=== PATIENT | female | born 1960 | race African-American/Black ===

== ENCOUNTER 2017-05-21 13:16 | Emergency (ER) | payer OTHER ==
[~2017-05-21] VITALS: Ht 167.6 cm; Wt 68.0 kg
[~2017-05-21 13:16] MED LIST: CLONIDINE; HYDR25TA4; LISINOPRIL PO
--- NOTE | 2017-05-21 13:16 | NUR ---
Patient is AOx4 but unable to recall the exact names & dosages of her home medicines at this time.
[2017-05-21] MEDS ORDERED: TETRACAINE HCL 0.5% OPHT DROP 2 ML BOTTLE OP ONE (13:30)
[2017-05-21] MEDS ORDERED: FLUORESCEIN SODIUM 1 MG STRIP OP ONE (13:30)
[2017-05-21] MEDS ORDERED: LATANOPROST 0.005% EYE DROPS (13:34)
[2017-05-21] MEDS ORDERED: LISINOPRIL PO (13:36)
[2017-05-21] MEDS ORDERED: AMLODIPINE (13:36)
[2017-05-21] MEDS ORDERED: HYDR25TA4 PO (13:36)
[2017-05-21] MEDS ORDERED: GENTAMICIN SULFATE OPHT OINT 3.5 GM TUBE LEFTEYE ONE (13:45)
[2017-05-21] MEDS ORDERED: FLUORESCEIN SODIUM 1 MG STRIP ONE (13:48)
[2017-05-21] MEDS ORDERED: TETRACAINE HCL 0.5% OPHT DROP 2 ML BOTTLE ONE (13:48)
--- NOTE | 2017-05-21 13:53 | NUR ---
Patient says, "I feel so much better, about 50 percent better." Patient discharged to home in stable conditon. Written and verbal after care instructions given to patient. Patient verbalizes understanding of instructions. Left eye patch is on.
[2017-05-21] MEDS ORDERED: GENTAMICIN SULFATE OPHT OINT 3.5 GM TUBE ONE (14:00)
== END 2017-05-21 13:54 | disposition home or self-care (01) ==
LOC: ER 13:16
DX: H18.822 Corneal disorder due to contact lens, left eye (principal); I10 Essential (primary) hypertension; Z88.0 Allergy status to penicillin
CPT/HCPCS: 99283; A4663

== ENCOUNTER 2017-09-28 17:12 | Emergency (ER) | payer OTHER ==
[~2017-09-28] VITALS: Ht 167.6 cm; Wt 65.8 kg
[~2017-09-28 17:12] MED LIST changes: +AMLODIPINE; -HYDR25TA4; +HYDR25TA4 PO; +LATANOPROST 0.005% EYE DROPS
--- NOTE | 2017-09-28 18:49 | NUR ---
Patient discharged to home in stable conditon. Written and verbal after care instructions given. Patient verbalizes understanding of instructions.
== END 2017-09-28 18:52 | disposition home or self-care (01) ==
LOC: ER 17:13
DX: S61.211A Laceration without foreign body of left index finger without damage to nail, initial encounter (principal); I10 Essential (primary) hypertension; Z88.0 Allergy status to penicillin; Z79.899 Other long term (current) drug therapy; W26.8XXA Contact with other sharp object(s), not elsewhere classified, initial encounter; Y93.89 Activity, other specified; Y92.89 Other specified places as the place of occurrence of the external cause; Y99.8 Other external cause status
CPT/HCPCS: 12001; 99283; A4217; A4663

== ENCOUNTER 2019-02-28 11:43 | Emergency (ER) | payer OTHER ==
[~2019-02-28] VITALS: Ht 167.6 cm; Wt 68.0 kg
[2019-02-28] MEDS ORDERED: ONDANSETRON ODT 4 MG TAB.RAPDIS SL ONE (12:00)
[2019-02-28] MEDS ORDERED: ONDANSETRON ODT 4 MG TAB.RAPDIS ONE (12:03)
--- NOTE | 2019-02-28 12:08 | NUR ---
Patient discharged to home in stable conditon. Written and verbal after care instructions given to patient. Patient verbalizes understanding of instructions.
== END 2019-02-28 12:09 | disposition home or self-care (01) ==
LOC: ER 11:43
DX: R21 Rash and other nonspecific skin eruption (principal); R20.2 Paresthesia of skin; R11.0 Nausea; I10 Essential (primary) hypertension; Z88.0 Allergy status to penicillin; Z79.899 Other long term (current) drug therapy
CPT/HCPCS: A4663; Q0162

== ENCOUNTER 2019-07-19 08:37 | Emergency (ER) | payer OTHER ==
[~2019-07-19] VITALS: Ht 170.2 cm; Wt 72.6 kg
--- NOTE | 2019-07-19 09:13 | NUR ---
@[email or web address], MSE in progress
--- NOTE | 2019-07-19 09:31 | NUR ---
Patient discharged to home in stable condition. Written and verbal after care instructions given to patient. Patient verbalizes understanding and compliance of instructions.
== END 2019-07-19 09:32 | disposition home or self-care (01) ==
LOC: ER 08:37
DX: L29.9 Pruritus, unspecified (principal); I10 Essential (primary) hypertension; Z88.0 Allergy status to penicillin; Z79.899 Other long term (current) drug therapy
CPT/HCPCS: A4663

== ENCOUNTER 2019-07-29 22:06 | Emergency (ER) | payer OTHER ==
[~2019-07-29] VITALS: Ht 165.1 cm; Wt 70.3 kg
--- NOTE | 2019-07-29 22:17 | NUR ---
Dr. Hogan at bedside for MSE.
--- NOTE | 2019-07-29 22:29 | NUR ---
Patient discharged to home in stable condition. Written and verbal after care instructions given. Patient verbalizes understanding of instructions. Pt ambulated out of ER with steady gait, no acute signs of distress, VSS, all belongings taken.
[2019-07-29 22:30] VITALS: BP 139/99
== END 2019-07-29 22:30 | disposition home or self-care (01) ==
LOC: ER 22:08
DX: Z11.9 Encounter for screening for infectious and parasitic diseases, unspecified (principal); R20.2 Paresthesia of skin; I10 Essential (primary) hypertension
CPT/HCPCS: A4663

== ENCOUNTER 2019-07-31 11:27 | Emergency (ER) | payer OTHER ==
[~2019-07-31] VITALS: Ht 170.2 cm; Wt 68.0 kg
--- NOTE | 2019-07-31 12:13 | NUR ---
PATIENT IS AWAKE AND ALERT IN NO DISTRESS.
[2019-07-31 12:52] LABS: BASOPHILS % (AUTO) 0.7 % (0.0-2.0); EOSINOPHILS % (AUTO) 0.5 % (0.0-7.0); HEMATOCRIT 46.7 % (31.2-41.9); HEMOGLOBIN 15.2 g/dL (10.9-14.3); LYMPHOCYTES % (AUTO) 40.7 % (20.5-51.5); MEAN CORPUSCULAR HEMOGLOBIN 27.3 uug (24.7-32.8); MEAN CORPUSCULAR HGB CONC 33 g/dL (32.3-35.6); MONOCYTES # (AUTO) 0.5 K/uL (2.0-10.0); MONOCYTES % (AUTO) 9.1 % (0.0-11.0); NEUTROPHILS # (AUTO) 2.5 K/uL (1.8-8.9); PLATELET COUNT (AUTO) 308 K/uL (179-408); RED BLOOD CELL COUNT(AUTO) 5.55 MIL/uL (3.63-4.92)
[2019-07-31 13:00] LABS: CREATININE 1.4 mg/dL (0.6-1.3); POTASSIUM 3.3 mmol/L (3.5-5.1)
[2019-07-31 13:12] LABS: BILIRUBIN,DIRECT 0.1 mg/dL (0.0-0.2); BILIRUBIN,TOTAL 0.4 mg/dL (0.2-1.0); ETHANOL < 3 MG/DL (0-0); TOTAL PROTEIN, SERUM 8.1 g/dL (6.4-8.2)
[2019-07-31 13:14] LABS: ACETAMINOPHEN < 2.0 ug/mL (10-30)
[2019-07-31] MEDS ORDERED: POTASSIUM CHLORIDE 20 MEQ TAB.PRT.SR PO ONE (14:00)
[2019-07-31] MEDS ORDERED: POTASSIUM CHLORIDE 20 MEQ TAB.PRT.SR ONE (14:12)
--- NOTE | 2019-07-31 14:40 | NUR ---
DC and follow up instructions given and explained to patient who states she understands all instructions.
== END 2019-07-31 14:42 | disposition home or self-care (01) ==
LOC: ER 11:30
DX: Z11.9 Encounter for screening for infectious and parasitic diseases, unspecified (principal); I10 Essential (primary) hypertension; Z60.2 Problems related to living alone; Z79.899 Other long term (current) drug therapy; Z88.0 Allergy status to penicillin
CPT/HCPCS: 36415; 74176; 80048; 80076; 83690; 85025; 86625; 87015; 87046; 87427; 87493; 87899; 89055; 96365; 99284; G0480 ×2; G0481; A4663

== ENCOUNTER 2024-07-25 17:25 | Emergency (ER) | payer MEDICARE, OTHER ==
[~2024-07-25] VITALS: Ht 167.6 cm; Wt 74.8 kg
[2024-07-25] MEDS ORDERED: KETOROLAC TROMETHAMINE 15 MG INJ IM ONE (18:45)
[2024-07-25] MEDS ORDERED: KETOROLAC TROMETHAMINE 15 MG INJ ONE (19:01)
[2024-07-25] MEDS ORDERED: ONDANSETRON 4 MG/2 ML VIAL ONE (19:01)
[2024-07-25 19:06] LABS: BASOPHILS % (AUTO) 0.9 % (0.0-2.0); EOSINOPHILS # (AUTO) 0.1 K/uL (0.0-0.7); EOSINOPHILS % (AUTO) 1.4 % (0.0-7.0); HEMATOCRIT 43.7 % (31.2-41.9); LYMPHOCYTES # (AUTO) 2.4 K/uL (0.8-4.8); LYMPHOCYTES % (AUTO) 41.9 % (20.5-51.5); MEAN CORPUSCULAR HEMOGLOBIN 27.4 uug (24.7-32.8); MEAN CORPUSCULAR HGB CONC 32 g/dL (32.3-35.6); MEAN CORPUSCULAR VOLUME 85.3 fL (75.5-95.3); MONOCYTES # (AUTO) 0.5 K/uL (0.1-1.30); MONOCYTES % (AUTO) 7.9 % (0.0-11.0); NEUTROPHILS # (AUTO) 2.7 K/uL (1.8-8.9); NEUTROPHILS % (AUTO) 47.9 % (38.5-71.5); PLATELET COUNT (AUTO) 327 K/uL (179-408); RED BLOOD CELL COUNT(AUTO) 5.12 MIL/uL (3.63-4.92); RED CELL DISTRIBUTION WIDTH 14.7 % (12.3-17.7); WHITE BLOOD COUNT (AUTO) 5.7 K/uL (3.8-11.8)
[2024-07-25 19:07] LABS: *BILIRUBIN,URIN NEGATIVE (NEGATIVE); *CLARITY,URINE CLEAR (CLEAR); *COLOR,URINE YELLOW (YELLOW); *KETONES,URINE NEGATIVE (NEGATIVE); *PROTEIN,URINE NEGATIVE (NEGATIVE); *UROBILINOGEN,URINE 0.2 E.U./dl (NORMAL); LEUKOCYTE ESTERASE ,URINE NEGATIVE (NEGATIVE); NITRITE, URINE NEGATIVE (NEGATIVE); PH,URINE 6.5 (5.0-8.0); UGLUCOSE NEGATIVE (NEGATIVE)
[2024-07-25] MEDS: KETOROLAC TROMETHAMINE 15 MG INJ IVP ONE (19:07)
[2024-07-25] MEDS: ONDANSETRON 4 MG/2 ML VIAL IV ONE (19:07)
[2024-07-25] MEDS: IV NS 1000 ML 1,000 ML IV ONE (19:07)
[2024-07-25 19:10] LABS: DIFFERENTIAL COMMENT 1
[2024-07-25 19:15] LABS: CALCIUM 9.8 mg/dL (8.5-10.1); CREATININE 1.1 mg/dL (0.6-1.3); POTASSIUM 3.3 mmol/L (3.5-5.1)
[2024-07-25 19:19] LABS: *BLOOD, URINE TRACE (NEGATIVE)
[2024-07-25 19:21] LABS: ALBUMIN 3.9 g/dL (3.4-5.0); BILIRUBIN,TOTAL 0.4 mg/dL (0.2-1.0); TOTAL PROTEIN, SERUM 7.3 g/dL (6.4-8.2)
[2024-07-25 20:12] LABS: BACTERIA,URINE FEW /HPF (NONE SEEN); RBC,URINE 0-3 /HPF (0-3); SQUAMOUS EPITHELIAL CELL,UR MANY /HPF (NONE SEEN); WBC,URINE 0-3 /HPF (0-3)
[2024-07-25] MEDS ORDERED: NITR100C6 PO (21:05)
[2024-07-25] MEDS ORDERED: NAPR500T6 PO (21:05)
[2024-07-25] MEDS: POTASSIUM CHLORIDE 20 MEQ TAB.PRT.SR PO ONE (21:15)
[2024-07-25] MEDS ORDERED: POTASSIUM CHLORIDE 20 MEQ TAB.PRT.SR ONE (22:27)
[2024-07-25 23:50] VITALS: BP 145/103; TEMP 98.7; O2SAT 98
== END 2024-07-25 23:40 | disposition home or self-care (01) ==
LOC: ER 17:25
DX: N39.0 Urinary tract infection, site not specified (principal); R11.10 Vomiting, unspecified; M51.369 Other intervertebral disc degeneration, lumbar region without mention of lumbar back pain or lower extremity pain; I10 Essential (primary) hypertension; Z79.899 Other long term (current) drug therapy; Z88.0 Allergy status to penicillin; Z88.7 Allergy status to serum and vaccine; Z60.2 Problems related to living alone
CPT/HCPCS: 99285; 74176; 96374; 96375; 80053; 81001; 85025; 87040; 36415; J1885; J2405; J7040; A4606; A4663

== ENCOUNTER 2025-02-17 07:29 | Emergency (ER) | payer MEDICARE, OTHER ==
[~2025-02-17] VITALS: Ht 167.6 cm; Wt 72.6 kg
[~2025-02-17 07:29] MED LIST changes: +NAPR500T6 PO; +NITR100C6 PO
[2025-02-17 07:31] VITALS: BP 128/91
[2025-02-17] MEDS ORDERED: FLUORESCEIN SODIUM 1 MG STRIP ONE (07:46)
[2025-02-17] MEDS ORDERED: TETRACAINE HCL 0.5% OPHT DROP 2 ML BOTTLE ONE (07:47)
[2025-02-17] MEDS ORDERED: ERYT3.5O24 RIGHTEYE (08:07)
[2025-02-17 08:13] VITALS: BP 128/91; TEMP 97.6; O2SAT 96
[2025-02-17] MEDS: TETRACAINE HCL 0.5% OPHT DROP 2 ML BOTTLE OP ONE (08:15)
[2025-02-17] MEDS: FLUORESCEIN SODIUM 1 MG STRIP OP ONE (08:15)
== END 2025-02-17 08:15 | disposition home or self-care (01) ==
LOC: ER 07:29
DX: S05.01XA Injury of conjunctiva and corneal abrasion without foreign body, right eye, initial encounter (principal); I11.9 Hypertensive heart disease without heart failure; E78.5 Hyperlipidemia, unspecified; Z79.899 Other long term (current) drug therapy; Z88.0 Allergy status to penicillin; Z88.7 Allergy status to serum and vaccine; X58.XXXA Exposure to other specified factors, initial encounter; Y93.89 Activity, other specified; Y92.89 Other specified places as the place of occurrence of the external cause; Y99.9 Unspecified external cause status
CPT/HCPCS: A4606; A4663